=== PATIENT | male | born 1965 | race African-American/Black ===

== ENCOUNTER → 2024-03-09 | Outpatient (CLI) | payer OTHER ==
--- NOTE | 2024-03-09 07:48 | MR ---
EXAMINATION TYPE: MR Prostate wo/w con DATE OF EXAM: 03/09/2024 7:37 AM COMPARISON: None. CLINICAL INDICATION: Male, 59 years old with history of R97.20 ELEVATED PROSTATE SPECIFIC ANTIGEN [P SA]; Elevated PSA. TECHNIQUE: Multi-planar, multi-sequence imaging of the pelvis is performed prior to and following the uncomplicated administration of bolus intravenous gadolinium. IV Contrast: 12 mL Gadobutrol Interpretive Criteria: PI-RADS v2.1 SERUM PSA: 12-24 = 12.20 -07-14 = 10.7 SURGICAL PATHOLOGY: No data available. FINDINGS: Prostatic dimensions: 5.4 x 6.5 x 4.6 cm. Ellipsoid Volume:84.54 (PSA density=0.14 ng/mL/mL) CENTRAL GLAND (Central and Transition Zones/CZ+TZ): Anterior midline high DWI and low ADC signal lesion involving the mid gland anteriorly along the caps ule measuring up to 15 mm and does cross midline. (PI-RADS 5) Additional area on the left towards the apex measuring 12 mm also present which is high DWI and low A DC signal and low T2 signal (PI-RADS 4) Median lobe hypertrophy with protrusion into the base of the bladder. PERIPHERAL ZONE (PZ): Bilateral linear, indistinct wedgelike areas of low ADC, and low T2 signal, No evidence of masslike a bnormality, or localized perfusional hypervascularity, to further suggest a focus of clinically signi ficant prostate cancer. (PI-RADS 2) SEMINAL VESICLES (SV): Symmetric and unremarkable. PERIPROSTATIC TISSUES: Unremarkable. LYMPH NODES: No enlarged pelvic lymph node. REMAINING PELVIS: Bladder wall is within normal limits given distention. No abnormal free or organized intrapelvic fluid collection. No pathologic bowel dilation or mural thickening. No hernia visualized right inguinal hernia repair mesh present. There remains OSSEOUS STRUCTURES: No suspicious osseous abnormality. IMPRESSION: 1. PI-RADS 5 lesion involving the central mid gland, anteriorly, crossing midline measuring up to 15 mm. 2. BI-RADS 4 lesion left central gland towards the apex measuring up to 12 mm. 3. Substantial BPH, estimated gland volume 84.54 mL. 4. No suspicious osseous lesion. No lymphadenopathy. No evidence of prostate adenocarcinoma involving the periprostatic tissues. [facility], , 03/09/2024 7:46 AM
== END | disposition home or self-care (01) ==
LOC: RADMRIMAIN 06:20
PROVIDERS: ATTEND Urology
DX: R97.20 Elevated prostate specific antigen [PSA] (principal); N40.0 Benign prostatic hyperplasia without lower urinary tract symptoms
CPT/HCPCS: 72197; A9585

== ENCOUNTER 2024-04-19 15:27 | Emergency (ER) | payer OTHER ==
[2024-04-19 16:03] LABS: Basophils % (A) 0 %; Eosinophils # (A) 0.1 k/uL (0-0.7); Eosinophils % (A) 2 %; HCT 43.4 % (39.0-53.0); HGB 13.6 gm/dL (13.0-17.5); Lymphocytes # (A) 1.4 k/uL (1.0-4.8); Lymphocytes % (A) 25 %; MCH 29.5 pg (25.0-35.0); MCHC 31.3 g/dL (31.0-37.0); MCV 94.3 fL (80.0-100.0); Mean Platelet Volume 10.6; Monocytes # (A) 0.3 k/uL (0-1.0); Monocytes % (A) 6 %; Neutrophils # (A) 3.7 k/uL (1.3-7.7); Neutrophils % (A) 66 %; Platelet Count 155 k/uL (150-450); RDW 13.7 % (11.5-15.5); WBC 5.6 k/uL (3.8-10.6)
[2024-04-19 16:12] LABS: Partial Thromboplastin Time 24.3 sec (22.0-30.0); Prothrombin Time 11.1 sec (10.0-12.5)
[2024-04-19 16:22] LABS: ALT 30 U/L (4-49); AST 29 U/L (17-59); African American GFR (CKD) 66 (>60 ml/min/1.73 sqM); Albumin 4.4 g/dL (3.5-5.0); Alkaline Phosphatase 63 U/L (38-126); Anion Gap 9 mmol/L; Blood Urea Nitrogen 21 mg/dL (9-20); Calcium 9.7 mg/dL (8.4-10.2); Carbon Dioxide 25 mmol/L (22-30); Chloride 105 mmol/L (98-107); Glucose 84 mg/dL (74-99); Non-African American GFR(CKD) 57 (>60 ml/min/1.73 sqM); Potassium 4.1 mmol/L (3.5-5.1); Sodium 139 mmol/L (137-145); Total Protein 7.4 g/dL (6.3-8.2)
--- NOTE | 2024-04-19 16:22 | ED ---
General Adult HPI - General Chief complaint: Recheck/Abnormal Lab/Rx Stated complaint: high blood pressure Time Seen by Provider: 04/19/24 15:52 Source: patient Mode of arrival: ambulatory Limitations: no limitations - History of Present Illness Initial comments: Patient is a pleasant 59-year-old gentleman past medical Struve hypertension presenting today for high blood pressure. Patient was at an outpatient center about to have a prostate biopsy done when he was noted to have blood pressure of 187/110. He was directed to the emergency room for further evaluation. Patient was seen by his PCP yesterday and was noted to have high blood pressure at that time as well. Was told by his primary care doctor that it could be potentially secondary to not taking his medications as prescribed. Patient states he takes 20 mg of lisinopril that he supposed to take every morning but sometimes takes it at night. He takes another blood pressure medication that he cannot remove the name of. Denies missed dosages and he is not due for any of his medications right now. Patient endorses is a very mild headache at the back of his head but denies any changes in vision, slurred speech, focal numbness or weakness, chest pain, difficulty in breathing or lower extremity swelling. No fevers or chills or recent illness. - Related Data Home Medications Medication Instructions Recorded Confirmed Citalopram Hydrobromide [CeleXA] 20 mg PO DAILY 04/16/24 04/16/24 Omeprazole 20 mg PO DAILY 04/16/24 04/16/24 lisinopriL [Zestril] 20 mg PO DAILY 04/16/24 04/16/24 Allergies Allergy/AdvReac Type Severity Reaction Status Date / Time No Known Allergies Allergy Verified 04/19/24 15:45 Review of Systems ROS Statement: Those systems with pertinent positive or pertinent negative responses have been documented in the HPI. ROS Other: All systems not noted in ROS Statement are negative. Past Medical History Past Medical History: GERD/Reflux, Hypertension History of Any Multi-Drug Resistant Organisms: None Reported Past Surgical History: Hernia Repair Past Anesthesia/Blood Transfusion Reactions: No Reported Reaction Past Psychological History: Depression Smoking Status: Never smoker Past Alcohol Use History: Occasional Past Drug Use History: Marijuana - Past Family History Mother Family Medical History: Cancer Additional Family Medical History / Comment(s): Lung General Exam - General Exam Comments Initial Comments: PE: CONSTITUTIONAL: [no apparent distress, well appearing] SKIN: [warm, dry, no jaundice, hives or petechiae] EYES:[ pupils are equally round, extraocular movements intact without nystagmus, clear conjunctiva, non-icteric sclera] HENT: [normocephalic, atraumatic, moist mucus membranes, oropharynx clear without exudates] NECK: , [Full range of motion, normal appearance] PULMONARY: [clear to auscultation without wheezes, rhonchi, or rales, normal excursion, no accessory muscle use and no stridor] CARDIOVASCULAR:[ regular rate, rhythm, normal S1 and S2. No appreciated murmurs, rubs or gallops. Strong radial pulses with intact distal perfusion. No lower extremity edema] GASTROINTESTINAL: [soft, active bowel sounds throughout, non-tender, non- distended, no palpable masses, no rebound or guarding. No hepatosplenomegaly] GENITOURINARY: MUSCULOSKELETAL: [Extremities have no gross deformity, no edema, redness, or swelling. No calf swelling ] NEUROLOGIC: [_a/o x 3, GCS 15, normal mentation and speech. Moves all extremit ies x 4 without motor or sensory deficit, no focal neurologic deficits, no facial droop, speech is clear, extraocular movements intact] PSYCHIATRIC:[ _normal mood and affect, thought process is clear and linear] Limitations: no limitations Course Vital Signs 04/19/24 04/19/24 04/19/24 15:41 17:13 17:19 Temperature 97.6 F Pulse Rate 68 68 Pulse Rate [ 67 Pulse Oximetery ] Respiratory 17 Rate Blood Pressure 183/131 199/127 O2 Sat by Pulse 97 Oximetry 04/19/24 04/19/24 04/19/24 17:49 18:09 18:24 Temperature 97.8 F 98.1 F Pulse Rate 67 62 66 Pulse Rate [ Pulse Oximetery ] Respiratory 18 18 Rate Blood Pressure 186/109 164/98 170/99 O2 Sat by Pulse 97 99 Oximetry - Reevaluation(s) Reevaluation #1: Administration of Catapres and reassessment of blood pressure were delayed due to patient's pending significant mount of time of the waiting room. Blood pressure increased to 199/127 just prior to Catapres. Catapres given at approximately 1715. Will reassess at 1800 04/19/24 17:44 EKG Findings - EKG Comments: EKG Findings:: Sinus rhythm rate 60 bpm AK interval 159 ms QT/QTc 377/3 9079 ms, normal axis, no ST elevations or depressions, no STEMI, no arrhythmia Medical Decision Making - Medical Decision Making Was pt. sent in by a medical professional or institution (, [facility], ABATTOIR SUPERVISOR, urgent care, hospital, or usp...) When possible be specific @ -No Did you speak to anyone other than the patient for history (EMS, parent, family, police, friend...)? What history was obtained from this source @ -No Did you review nursing and triage notes (agree or disagree)? Why? @ -I reviewed nursing and triage notes Were old charts reviewed (outside hosp., previous admission, EMS record, old EKG, old radiological studies, urgent care reports/EKG's, usp records)? Report findings @ -Medical records reviewed Differential Diagnosis (chest pain, altered mental status, abdominal pain women, abdominal pain men, vaginal bleeding, weakness, fever, dyspnea, syncope, heada janes, dizziness, GI bleed, back pain, seizure, CVA, palpatations, mental health, musculoskeletal)? @Differential diagnose broad over top considerations include hypertensive emergency, hypertensive urgency, pheochromocytoma, thyrotoxicosis, asymptomatic hypertension, medication noncompliance, whitecoat hypertension is not all- inclusive this EKG interpreted by me (3pts min.). @ -As above X-rays interpreted by me (1pt min.). @ -I personally reviewed chest x-ray, I see no cardiomegaly, consolidations or pleural effusions, I agree with radiologist interpretation CT interpreted by me (1pt min.). @ -None done U/S interpreted by me (1pt. min.). @ -None done What testing was considered but not performed or refused? (CT, X-rays, U/S, labs)? Why? @Due to headache and hypertension a CT brain was considered however patient describes his headache has very mild, he has no focal neurologic deficits, hea dache was not sudden in onset or thunderclap like What meds were considered but not given or refused? Why? @ -None Did you discuss the management of the patient with other professionals (professionals i.e. Dr., PA, ABATTOIR SUPERVISOR, lab, RT, psych nurse, social media assistant, generator assembler, teacher, aoc operations intelligence officer, casework manager)? Give summary @ -No Was smoking cessation discussed for >3mins.? @ -No Was critical care preformed (if so, how long)? no Were there social determinants of health that impacted care today? How? (Deyvi elessness, low income, unemployed, alcoholism, drug addiction, transportation, low edu. Level, literacy, decrease access to med. care, senior living, rehab)? @ -No Was there de-escalation of care discussed even if they declined (Discuss DNR or withdrawal of care, Hospice)? @ -No What co-morbidities impacted this encounter? (DM, HTN, Smoking, COPD, CAD, Cancer, CVA, ARF, Chemo, Hep., AIDS, mental health diagnosis, sleep apnea, morbid obesity)? @ HTN Was patient admitted / discharged? Hospital course, mention meds given and route, prescriptions, significant lab abnormalities, going to OR and other perti nent info. @ -Discharged- Patient is a pleasant 59-year-old gentleman past medical history of hypertension presenting with his fiance from an outpatient procedure site due to high blood pressure. Blood pressure on arrival 183/113. Patient endorses a mild headache otherwise is asymptomatic. I did obtain patient's permission to discuss his history and performed brief physical exam in the waiting room. He was agreeable to this. Patient has no red flag symptoms suggestive end organ damage. Reassuring exam. As there is a bed shortage throughout the emergency department due to multiple boarding patients I am unable to treat patient with IV antihypertensives at this time. Patient did suggest Catapres as this has helped him in the past. While patient is pending further evaluation I will order 0.1 mg tablet Catapres, if he is placed in room we will transition to IV medications. As patient is overall asymptomatic with only mild headache I do anticipate discharge. Creatinine 1.36. GFR 66. No measurements from prior to today available for comparison, though labs drawn earlier this afternoon show GFR 70 and Cr 1.29. Urine did show trace protein. Otherwise labs are remarkable. Blood pressure did improve after administration of medications, 164/98. Patient requesting discharge home and is currently asymptomatic. His headache has resolved. I discussed with him trace protein noted in urine and the importance of following up with his doctor for recheck of kidney function, as this could be 2/2 to his HTN. He will call his doctor tomorrow morning regarding further direction on blood pressure medications. I did tell him if he checks his blood pressure tomorrow and it is 180/110 he should take a second dose of his lisinopril. We discussed signs and symptoms warranting return to emergency department and patient was comfortable discharge at this time. In my medical judgment there is currently no evidence of an immediate life- threatening or surgical condition. Discharge is therefore indicated at this time. Discharge treatment instructions, follow up instructions, and appropriate emergency department return precautions were discussed with the patient and/or medical decision maker. Patient and/or medical decision maker expressed understanding of and agreed with the treatment plan, follow up instructions, and emergency department return precaution. All patient's and/or medical decision maker's questions were answered. The patient was advised that a small risk still exists that a serious condition could develop and was therefore instructed to return to the ED for any changes in symptoms, persistent symptoms, inability to obtain proper follow-up or for any further concerns. Patient received verbal and written instructions for this condition. Undiagnosed new problem with uncertain prognosis? @ -No Drug Therapy requiring intensive monitoring for toxicity (Heparin, Nitro, Insulin, Cardizem)? @ -No Were any procedures done? @ -No Diagnosis/symptom? @ -Uncontrolled hypertension Acute, or Chronic, or Acute on Chronic? Acute on chronic Uncomplicated (without systemic symptoms) or Complicated (systemic symptoms)? @Uncomplicated Side effects of treatment? @ -No Exacerbation, Progression, or Severe Exacerbation? @ -No Poses a threat to life or bodily function? How? (Chest pain, [place], [place], pneumonia, PE, COPD, DKA, ARF, appy, cholecystitis, CVA, Diverticulitis, Homicidal, Suicidal, threat to staff... and all critical care pts) @ -No - Lab Data Result diagrams: 04/19/24 15:48 04/19/24 15:48 Lab Results 04/19/24 04/19/24 04/19/24 Range/Units 15:48 15:48 15:48 WBC 5.6 (3.8-10.6) k/uL RBC 4.60 (4.30-5.90) m/uL Hgb 13.6 (13.0-17.5) gm/dL Hct 43.4 (39.0-53.0) % MCV 94.3 (80.0-100.0) fL MCH 29.5 (25.0-35.0) pg MCHC 31.3 (31.0-37.0) g/dL RDW 13.7 (11.5-15.5) % Plt Count 155 (150-450) k/uL MPV 10.6 Neutrophils % 66 % Lymphocytes % 25 % Monocytes % 6 % Eosinophils % 2 % Basophils % 0 % Neutrophils # 3.7 (1.3-7.7) k/uL Lymphocytes # 1.4 (1.0-4.8) k/uL Monocytes # 0.3 (0-1.0) k/uL Eosinophils # 0.1 (0-0.7) k/uL Basophils # 0.0 (0-0.2) k/uL PT 11.1 (10.0-12.5) sec INR 1.0 (<1.2) APTT 24.3 (22.0-30.0) sec Sodium 139 (137-145) mmol/L Potassium 4.1 (3.5-5.1) mmol/L Chloride 105 (98-107) mmol/L Carbon Dioxide 25 (22-30) mmol/L Anion Gap 9 mmol/L BUN 21 H (9-20) mg/dL Creatinine 1.36 H (0.66-1.25) mg/dL Est GFR (CKD-EPI)AfAm 66 (>60 ml/min/1.73 sqM) Est GFR (CKD-EPI)NonAf 57 (>60 ml/min/1.73 sqM) Glucose 84 (74-99) mg/dL Calcium 9.7 (8.4-10.2) mg/dL Total Bilirubin 1.0 (0.2-1.3) mg/dL AST 29 (17-59) U/L ALT 30 (4-49) U/L Alkaline Phosphatase 63 (38-126) U/L Troponin I (0.000-0.034) ng/mL NT-Pro-B Natriuret Pep pg/mL Total Protein 7.4 (6.3-8.2) g/dL Albumin 4.4 (3.5-5.0) g/dL TSH (0.465-4.680) mIU/L Urine Color Urine Appearance (Clear) Urine pH (5.0-8.0) Ur Specific [place] (1.001-1.035) Urine Protein (Negative) Urine Glucose (UA) (Negative) Urine Ketones (Negative) Urine Blood (Negative) Urine Nitrite (Negative) Urine Bilirubin (Negative) Urine Urobilinogen (<2.0) mg/dL Ur Leukocyte Esterase (Negative) 04/19/24 04/19/24 04/19/24 Range/Units 15:48 15:48 17:27 WBC (3.8-10.6) k/uL RBC (4.30-5.90) m/uL Hgb (13.0-17.5) gm/dL Hct (39.0-53.0) % MCV (80.0-100.0) fL MCH (25.0-35.0) pg MCHC (31.0-37.0) g/dL RDW (11.5-15.5) % Plt Count (150-450) k/uL MPV Neutrophils % % Lymphocytes % % Monocytes % % Eosinophils % % Basophils % % Neutrophils # (1.3-7.7) k/uL Lymphocytes # (1.0-4.8) k/uL Monocytes # (0-1.0) k/uL Eosinophils # (0-0.7) k/uL Basophils # (0-0.2) k/uL PT (10.0-12.5) sec INR (<1.2) APTT (22.0-30.0) sec Sodium (137-145) mmol/L Potassium (3.5-5.1) mmol/L Chloride (98-107) mmol/L Carbon Dioxide (22-30) mmol/L Anion Gap mmol/L BUN (9-20) mg/dL Creatinine (0.66-1.25) mg/dL Est GFR (CKD-EPI)AfAm (>60 ml/min/1.73 sqM) Est GFR (CKD-EPI)NonAf (>60 ml/min/1.73 sqM) Glucose (74-99) mg/dL Calcium (8.4-10.2) mg/dL Total Bilirubin (0.2-1.3) mg/dL AST (17-59) U/L ALT (4-49) U/L Alkaline Phosphatase (38-126) U/L Troponin I <0.012 (0.000-0.034) ng/mL NT-Pro-B Natriuret Pep 119 pg/mL Total Protein (6.3-8.2) g/dL Albumin (3.5-5.0) g/dL TSH 0.622 (0.465-4.680) mIU/L Urine Color Yellow Urine Appearance Clear (Clear) Urine pH 6.0 (5.0-8.0) Ur Specific [place] 1.023 (1.001-1.035) Urine Protein Trace H (Negative) Urine Glucose (UA) Negative (Negative) Urine Ketones Negative (Negative) Urine Blood Negative (Negative) Urine Nitrite Negative (Negative) Urine Bilirubin Negative (Negative) Urine Urobilinogen <2.0 (<2.0) mg/dL Ur Leukocyte Esterase Negative (Negative) Disposition Clinical Impression: Uncontrolled hypertension, Protein in urine Disposition: HOME SELF-CARE Condition: Good Instructions (If sedation given, give patient instructions): Hypertension (ED) Additional Instructions: Every disease is a spectrum and a small chance still exists that a serious condition could develop, for this reason, please monitor yourself closely for new, changing or worsening symptoms, strokelike symptoms such as changes in vision, numbness, weakness, slurred speech or confusion, severe headache like you have never had before, chest pain, shortness breath, swelling in your legs, no urine output for greater than 9 hours, right upper quadrant abdominal pain, fever, inability to tolerate/keep down fluids or your medications, inability to follow up with outpatient providers as instructed and should you experience th isadora symptoms or should you have any further concerns for your wellbeing please return to the ED or call 911 immediately. Should you measure blood pressure at home and the top numbers of 180 and/or the bottom numbers above 110 but you have none of the symptoms listed above please take a second dose of your lisinopril until you are able to follow-up with your primary care provider for long-term plan regarding blood pressure management. PLEASE call your primary care physician as soon as possible to arrange / discuss plan for followup appointment. Appointment in the next 1-3 days is strongly e ncouraged if possible. PLEASE let us know here before you leave if there is anything further we can do to be of any assistance. Take care and feel Better! Is patient prescribed a controlled substance at d/c from ED?: No [facility] - 1-2 days
--- NOTE | 2024-04-19 16:23 | XR ---
EXAMINATION TYPE: XR chest 2V DATE OF EXAM: 04/19/2024 4:07 PM COMPARISON: None. CLINICAL INDICATION: Male, 59 years old with history of elevated BP, TECHNIQUE: XR chest 2V view(s) obtained. FINDINGS: The heart size is normal. The pulmonary vasculature is normal. The lungs are clear. There is elevation of the right diaphragm. IMPRESSION: 1. No acute pulmonary process. [facility], , 04/19/2024 4:21 PM
[2024-04-19 17:01] LABS: NT-Pro-B-Type Natriuretic Pept 119 pg/mL
[2024-04-19] MEDS: ACETAMINOPHEN TAB 500 MG TAB PO STA (17:16)
[2024-04-19] MEDS: cloNIDine HCL 0.1 MG TAB PO STA (17:16)
[2024-04-19] MEDS: IBUPROFEN 600 MG TAB PO STA (17:18)
[2024-04-19 17:37] LABS: Appearance,Urine Clear (Clear); Bilirubin,Urine Negative (Negative); Blood,Urine Negative (Negative); Color,Urine Yellow; Glucose,Urine (UA) Negative (Negative); Ketones,Urine Negative (Negative); Leukocyte Esterase,Urine Negative (Negative); Nitrite,Urine Negative (Negative); Protein,Urine Trace (Negative); Specific Gravity,Urine 1.023 (1.001-1.035); Urobilinogen,Urine <2.0 mg/dL (<2.0)
[2024-04-19] MEDS ORDERED: LABETALOL SYRINGE 5 MG/ML (4 ML SYR) IVP STA (17:43)
[2024-04-19] MEDS: LABETALOL 5 MG/ML VIAL MDV IVP STA (17:57)
[2024-04-19 18:12] VITALS: RESP 18
[2024-04-19 18:26] VITALS: BP 170/99; PULSE 66; TEMP 98.1
== END 2024-04-19 18:26 | disposition home or self-care (01) ==
LOC: EC 15:27
DX: I10 Essential (primary) hypertension (principal); R80.9 Proteinuria, unspecified
CPT/HCPCS: 36415; 93005; 83880; 80053; 84443; 84484; 85025; 85610; 85730; 81003; 71046; 99284; 96374; J1920

== ENCOUNTER → 2024-04-19 | Day surgery (SDC) | payer OTHER ==
--- NOTE | 2024-03-29 12:37 | P.HPIHPCON ---
History of Present Illness H&P Date: 03/29/24 Chief Complaint: Elevated PSA This is a 59-year-old male with history of elevated PSA at 12.2. Underwent a prostate MRI that showed evidence of a PI-RADS 5 lesion along the central gland, an additional PI-RADS 4 lesion along the left central apex of the gland. Discussed with him given this finding I do recommend proceeding with an MRI fusion biopsy of the prostate. He is aware of the risk which includes but not limited to bleeding, infection Consent for Procedure: I have explained the operation/procedure to the patient, including the risks, benefits, side effects, alternative therapies (including not receiving the proposed treatment or service), the likelihood of the patient achieving his/her goals, and potential recuperation problems for the procedure/sedation/analgesia, as well as any blood products, if indicated. I also explained to the patient the risks, benefits and side effects of the alternatives, as well as the risks related to not receiving the proposed procedure, care, treatment, or services. Surgical - Exam - General no distress, no pain - Eyes normal ocular movement, no pale - ENT normal nares, normal mucosa - Respiratory normal expansion, normal respiratory effort - Abdomen Abdomen: soft, non tender Assessment and Plan Assessment: OR for MRI fusion biopsy of the prostate
[2024-04-16 15:35] VITALS: BMI 34.8
[~2024-04-19] MED LIST: GENTAMICIN 40 MG/ML 2 ML VIAL IM PRN; LIDOCAINE 1% (10MG/ML) FOR IV START INTRADERMA PRN
[2024-04-19 14:22] VITALS: RESP 16; TEMP 98.2
[2024-04-19] MEDS: IV FLUID CONTINUATION 1,000 ML IV ONE (14:24)
[2024-04-19 14:25] LABS: Appearance,Urine Clear (Clear); Bilirubin,Urine Negative (Negative); Blood,Urine Negative (Negative); Color,Urine Yellow; Glucose,Urine (UA) Negative (Negative); Ketones,Urine Negative (Negative); Leukocyte Esterase,Urine Negative (Negative); Nitrite,Urine Negative (Negative); Protein,Urine Trace (Negative); Specific Gravity,Urine 1.023 (1.001-1.035); Urobilinogen,Urine <2.0 mg/dL (<2.0)
[2024-04-19] MEDS: ONDANSETRON 4 MG/2 ML VIAL IVP ONE (14:34)
[2024-04-19] MEDS: DEXAMETHASONE SOD PHOSPHATE 4 MG/ML 1 ML VIAL IV ONE (14:34)
[2024-04-19] MEDS: LACTATED RINGERS 1,000 ML IV SCH (14:34)
[2024-04-19 14:46] LABS: Basophils % (A) 1 %; Eosinophils # (A) 0.1 k/uL (0-0.7); Eosinophils % (A) 2 %; HCT 43.2 % (39.0-53.0); Lymphocytes # (A) 1.4 k/uL (1.0-4.8); Lymphocytes % (A) 24 %; MCH 30.8 pg (25.0-35.0); MCHC 32.5 g/dL (31.0-37.0); MCV 94.8 fL (80.0-100.0); Mean Platelet Volume 10.5; Monocytes # (A) 0.4 k/uL (0-1.0); Monocytes % (A) 6 %; Neutrophils # (A) 3.7 k/uL (1.3-7.7); Neutrophils % (A) 66 %; Platelet Count 160 k/uL (150-450); RBC 4.55 m/uL (4.30-5.90); RDW 13.8 % (11.5-15.5); WBC 5.7 k/uL (3.8-10.6)
[2024-04-19 14:58] VITALS: BP 187/110; PULSE 65
[2024-04-19 15:01] LABS: African American GFR (CKD) 70 (>60 ml/min/1.73 sqM); Anion Gap 7 mmol/L; Blood Urea Nitrogen 21 mg/dL (9-20); Calcium 9.8 mg/dL (8.4-10.2); Carbon Dioxide 27 mmol/L (22-30); Chloride 105 mmol/L (98-107); Glucose 82 mg/dL (74-99); Non-African American GFR(CKD) 61 (>60 ml/min/1.73 sqM); Sodium 139 mmol/L (137-145)
[2024-04-19 15:03] LABS: Potassium 4.4 mmol/L (3.5-5.1)
== END ==
LOC: OR 11:35
PROVIDERS: ATTEND Urology
DX: Z53.8 Procedure and treatment not carried out for other reasons (principal); N40.0 Benign prostatic hyperplasia without lower urinary tract symptoms; R97.20 Elevated prostate specific antigen [PSA]; I10 Essential (primary) hypertension; F12.90 Cannabis use, unspecified, uncomplicated; F32.A Depression, unspecified; K21.9 Gastro-esophageal reflux disease without esophagitis; Z79.899 Other long term (current) drug therapy
CPT/HCPCS: 80048; 81003; 85025; 87086

== ENCOUNTER 2024-05-08 09:03 | Day surgery (SDC) | payer OTHER ==
--- NOTE | 2024-05-07 07:44 | P.HPIHPCON ---
History of Present Illness H&P Date: 05/07/24 Chief Complaint: Elevated PSA This is a 59-year-old male with history of elevated PSA at 12.2. Underwent a prostate MRI that showed evidence of a PI-RADS 5 lesion along the central gland, an additional PI-RADS 4 lesion along the left central apex of the gland. Discussed with him given this finding I do recommend proceeding with an MRI fusion biopsy of the prostate. He is aware of the risk which includes but not limited to bleeding, infection Consent for Procedure: I have explained the operation/procedure to the patient, including the risks, benefits, side effects, alternative therapies (including not receiving the proposed treatment or service), the likelihood of the patient achieving his/her goals, and potential recuperation problems for the procedure/sedation/analgesia, as well as any blood products, if indicated. I also explained to the patient the risks, benefits and side effects of the alternatives, as well as the risks related to not receiving the proposed procedure, care, treatment, or services. Past Medical History Past Medical History: GERD/Reflux, Hypertension History of Any Multi-Drug Resistant Organisms: None Reported Past Surgical History: Hernia Repair Past Anesthesia/Blood Transfusion Reactions: No Reported Reaction Past Psychological History: Depression Smoking Status: Never smoker Past Alcohol Use History: Occasional Past Drug Use History: Marijuana - Past Family History Mother Family Medical History: Cancer Additional Family Medical History / Comment(s): Lung Medications and Allergies Home Medications Medication Instructions Recorded Confirmed Type Citalopram Hydrobromide [CeleXA] 20 mg PO DAILY 04/16/24 04/16/24 History Omeprazole 20 mg PO DAILY 04/16/24 04/16/24 History lisinopriL [Zestril] 20 mg PO DAILY 04/16/24 04/16/24 History Allergies Allergy/AdvReac Type Severity Reaction Status Date / Time No Known Allergies Allergy Verified 04/19/24 15:45 Surgical - Exam - General no distress, no pain - Eyes normal ocular movement, no pale - ENT normal nares, normal mucosa - Respiratory normal expansion, normal respiratory effort - Abdomen Abdomen: soft, non tender, no distended - Psychiatric oriented to time, oriented to person, oriented to place Assessment and Plan Assessment: OR for MRI fusion biopsy of the prostate
[~2024-05-08 09:03] MED LIST changes: -GENTAMICIN 40 MG/ML 2 ML VIAL IM PRN; +HYDROmorphone 0.5 MG/0.5 ML SYRINGE IVP PRN; -LIDOCAINE 1% (10MG/ML) FOR IV START INTRADERMA PRN; +MIDAZOLAM 2 MG/2 ML VIAL IV PRN
[2024-05-08 10:53] VITALS: TEMP 97.4
[2024-05-08] MEDS: LACTATED RINGERS 1,000 ML IV SCH (11:02)
[2024-05-08] MEDS: hydrALAZINE HCL 20 MG/ML 1 ML VIAL IVP STA (11:06)
[2024-05-08] MEDS: IV FLUID CONTINUATION 1,000 ML IV ONE (11:09)
[2024-05-08] MEDS: GENTAMICIN 40 MG/ML 2 ML VIAL IM PRN (11:19)
[2024-05-08] MEDS ORDERED: LIDOCAINE 1% INJ 10MG/ML (20 ML MDV) ONE (12:41)
[2024-05-08] MEDS ORDERED: MIDAZOLAM 2 MG/2 ML VIAL ONE (12:41)
[2024-05-08] MEDS ORDERED: PROPOFOL 10 MG/ML 20 ML VIAL IV ONE (12:41)
--- NOTE | 2024-05-08 13:22 | P.OP ---
Date of Procedure: 05/08/24 Preoperative Diagnosis: Elevated PSA Postoperative Diagnosis: Same Procedure(s) Performed: MRI fusion biopsy of the prostate Implants: None Anesthesia: MAC Estimated Blood Loss (ml): 1 Pathology: other (Prostate biopsies) Condition: stable Disposition: PACU Indications for Procedure: This is a 59-year-old male with history of elevated PSA at 12.2. Underwent a prostate MRI that showed evidence of a PI-RADS 5 lesion along the central gland, an additional PI-RADS 4 lesion along the left central apex of the gland. Discussed with him given this finding I do recommend proceeding with an MRI fusion biopsy of the prostate. He is aware of the risk which includes but not limited to bleeding, infection Description of Procedure: The patient was taken to the operating room and placed in the left lateral decubitus position. The [employer] App transrectal ultrasound probe was placed intrarectally. It was then placed within the stand of the [employer] MRI/TRUS Fusion for Prostate Biopsy system. The prostate was imaged in both the axial and sagittal planes,. Using the Biopsy gun, 3 biopsies were obtained from the target lesion, there were were two lesions, . The remaining 12 biopsies of the peripheral zone were obtained utilizing a standard template. Once the procedure was completed, the ultrasound probe was removed. The patient tolerated the procedure well was taken to the recovery room stable condition
[2024-05-08 13:33] VITALS: BP 146/80; PULSE 66; RESP 18
== END 2024-05-08 13:50 | disposition home or self-care (01) ==
LOC: OR 09:03
PROVIDERS: ATTEND Urology
DX: C61 Malignant neoplasm of prostate (principal); R97.20 Elevated prostate specific antigen [PSA]; K21.9 Gastro-esophageal reflux disease without esophagitis; I12.9 Hypertensive chronic kidney disease with stage 1 through stage 4 chronic kidney disease, or unspecified chronic kidney disease; N18.9 Chronic kidney disease, unspecified; F32.A Depression, unspecified; F12.90 Cannabis use, unspecified, uncomplicated; Z79.899 Other long term (current) drug therapy; Z98.890 Other specified postprocedural states
CPT/HCPCS: 88305; 55700; J2250; J0360; J1580; J2003; J2704

== ENCOUNTER → 2024-05-08 | Outpatient (CLI) | payer OTHER ==
[2024-05-08 15:39] LABS: BUN/Creat Ratio 12.86 Ratio (12.00-20.00); Calcium 9.5 mg/dL (8.7-10.3); Carbon Dioxide 26.4 mmol/L (21.6-31.8); Chloride 106 mmol/L (96-109); Glucose 95 mg/dL (70-110); Potassium 4.2 mmol/L (3.5-5.5); Sodium 142 mmol/L (135-145)
[2024-05-08 15:41] LABS: Appearance,Urine Clear (Clear); Bilirubin,Urine Negative (Negative); Blood,Urine Negative (Negative); Color,Urine Yellow (Yellow); Ketones,Urine Negative (Negative); Nitrite,Urine Negative (Negative); Specific Gravity,Urine 1.018 (1.001-1.030)
[2024-05-08 15:45] LABS: Basophils # (A) 0.02 X 10*3/uL (0.00-0.10); Basophils % (A) 0.4 %; Eosinophils # (A) 0.04 X 10*3/uL (0.04-0.35); Eosinophils % (A) 0.8 %; HCT 46.1 % (39.6-50.0); HGB 14.5 g/dL (13.0-17.0); Immature Grans, Automated 0 %; Lymphocytes # (A) 1.23 X 10*3/uL (0.90-5.00); Lymphocytes % (A) 23.3 %; MCH 30.3 pg (27.0-32.0); MCHC 31.5 g/dL (32.0-37.0); MCV 96.2 FL (80.0-97.0); Mean Platelet Volume 13.4 FL (9.5-12.2); Monocytes # (A) 0.51 X 10*3/uL (0.20-1.00); Monocytes % (A) 9.7 %; NRBC Per 100 WBC 0 X 10*3/uL (0.00-0.01); Neutrophils # (A) 3.48 X 10*3/uL (1.80-7.70); Neutrophils % (A) 65.8 %; Platelet Count 192 X 10*3/uL (140-440); RBC 4.79 X 10*6/uL (4.40-5.60); RDW 13.3 % (11.5-14.5); WBC 5.28 X 10*3/uL (4.50-10.00)
== END | disposition home or self-care (01) ==
LOC: LABPAT 08:32
PROVIDERS: ATTEND Urology
DX: Z01.812 Encounter for preprocedural laboratory examination (principal); R97.20 Elevated prostate specific antigen [PSA]
CPT/HCPCS: 80048; 81003; 85025; 87086

== ENCOUNTER → 2024-07-02 | Outpatient (CLI) | payer OTHER ==
[2024-07-02 18:50] LABS: Basophils # (A) 0.02 X 10*3/uL (0.00-0.10); Basophils % (A) 0.3 %; Eosinophils # (A) 0.05 X 10*3/uL (0.04-0.35); Eosinophils % (A) 0.8 %; HCT 46.1 % (39.6-50.0); HGB 15.1 g/dL (13.0-17.0); Lymphocytes # (A) 1.41 X 10*3/uL (0.90-5.00); Lymphocytes % (A) 22.7 %; MCH 31.5 pg (27.0-32.0); MCHC 32.8 g/dL (32.0-37.0); Mean Platelet Volume 13.5 FL (9.5-12.2); Monocytes # (A) 0.54 X 10*3/uL (0.20-1.00); Monocytes % (A) 8.7 %; NRBC Per 100 WBC 0 X 10*3/uL (0.00-0.01); Neutrophils # (A) 4.18 X 10*3/uL (1.80-7.70); Neutrophils % (A) 67.3 %; Platelet Count 185 X 10*3/uL (140-440); RDW 12.9 % (11.5-14.5); WBC 6.21 X 10*3/uL (4.50-10.00)
[2024-07-02 20:09] LABS: Appearance,Urine Cloudy (Clear); Bacteria,Urine None Seen (None Seen); Bilirubin,Urine Negative (Negative); Blood,Urine Negative (Negative); Calcium Oxalate Crystals,Urine Present (None Seen); Color,Urine Dark Yellow (Yellow); Ketones,Urine Trace (Negative); Nitrite,Urine Negative (Negative); Specific Gravity,Urine 1.033 (1.001-1.030)
[2024-07-02 20:41] LABS: Blood Urea Nitrogen 27.5 mg/dL (9.0-27.0); Calcium 9.8 mg/dL (8.7-10.3); Chloride 100 mmol/L (96-109); Glucose 75 mg/dL (70-110); Potassium 4.3 mmol/L (3.5-5.5); Sodium 137 mmol/L (135-145)
== END | disposition home or self-care (01) ==
LOC: LABPAT 15:16
PROVIDERS: ATTEND Urology
DX: Z01.812 Encounter for preprocedural laboratory examination (principal); C61 Malignant neoplasm of prostate
CPT/HCPCS: 80048; 81001; 85025; 86850; 86900; 86901; 87086

== ENCOUNTER 2024-07-05 10:07 | Day surgery (SDC) | payer OTHER ==
[2024-06-28 14:59] VITALS: BMI 34.8
--- NOTE | 2024-07-03 12:28 | P.HPIHPCON ---
History of Present Illness H&P Date: 07/03/24 Chief Complaint: Prostate cancer This is a 59-year-old male with history of [place] 7(4+3) prostate cancer. Option of radiation therapy versus robotic radical prostatectomy was discussed in details. Risk and benefit of each approach were discussed. He agreed to proceed with a robotic radical prostatectomy. He is aware of the risk which include but not limited to bleeding, infection, urinary incontinence, erectile dysfunction. Discussed also risk of injury to nearby organs. Risk of cancer recurrence and the need for additional treatments were discussed. Discussed also the need for postoperative surveillance. He understood all the risk and agreed to proceed Consent for Procedure: I have explained the operation/procedure to the patient, including the risks, benefits, side effects, alternative therapies (including not receiving the pr oposed treatment or service), the likelihood of the patient achieving his/her goals, and potential recuperation problems for the procedure/sedation/analgesia, as well as any blood products, if indicated. I also explained to the patient the risks, benefits and side effects of the alternatives, as well as the risks related to not receiving the proposed procedure, care, treatment, or services. Past Medical History Past Medical History: Cancer, GERD/Reflux, Hyperlipidemia, Hypertension Additional Past Medical History / Comment(s): Current prostate cancer. No longer on medication for high cholesterol. History of Any Multi-Drug Resistant Organisms: None Reported Past Surgical History: Hernia Repair Additional Past Surgical History / Comment(s): Prostate biopsy. Past Anesthesia/Blood Transfusion Reactions: No Reported Reaction Smoking Status: Never smoker - Past Family History Mother Family Medical History: Cancer Additional Family Medical History / Comment(s): Lung cancer. Medications and Allergies Home Medications Medication Instructions Recorded Confirmed Type Citalopram Hydrobromide [CeleXA] 20 mg PO DAILY 04/16/24 06/28/24 History Omeprazole 20 mg PO DAILY 04/16/24 06/28/24 History lisinopriL [Zestril] 40 mg PO DAILY 04/16/24 06/28/24 History cloNIDine HCL 0.1 mg PO DAILY 05/08/24 06/28/24 History Multivitamins, Thera [Multivitamin 1 tab PO DAILY 06/28/24 06/28/24 History (formulary)] Vitamin E (Unknown Dose) 1 tab PO DAILY 05/08/25 05/08/25 History Allergies Allergy/AdvReac Type Severity Reaction Status Date / Time No Known Allergies Allergy Verified 06/28/24 14:31 Surgical - Exam - General no distress, no pain - Eyes normal ocular movement, no pale - ENT normal nares, normal mucosa - Respiratory normal expansion, normal respiratory effort - Abdomen Abdomen: soft, non tender Assessment and Plan Assessment: OR for robotic radical prostatectomy with bilateral pelvic lymph node dissection
[2024-07-05] MEDS: IV FLUID CONTINUATION 1,000 ML IV ONE ×4 (10:33)
[2024-07-05] MEDS: DEXAMETHASONE SOD PHOSPHATE 4 MG/ML 1 ML VIAL IV ONE (11:01)
[2024-07-05] MEDS: ONDANSETRON 4 MG/2 ML VIAL IVP ONE (11:01)
[2024-07-05] MEDS: LACTATED RINGERS 1,000 ML IV SCH (11:01)
[2024-07-05] MEDS: MIDAZOLAM 2 MG/2 ML VIAL IV ONE (11:43)
[2024-07-05] MEDS: fentaNYL (PF) 50 MCG/ML 2 ML AMP IVP STA (11:43)
[2024-07-05] MEDS ORDERED: ONDANSETRON 4 MG/2 ML VIAL IVP PRN (11:47)
[2024-07-05] MEDS: HEPARIN SODIUM,PORCINE 5,000 UNIT/ML 1 ML VIAL SQ PRN (11:57)
[2024-07-05] MEDS ORDERED: ROPIVACAINE 5 MG/ML 30 ML VIAL ONE (12:17)
[2024-07-05] MEDS ORDERED: DEXAMETHASONE SOD PHOSPHATE 4 MG/ML 1 ML VIAL ONE (12:17)
[2024-07-05] MEDS ORDERED: HYDROmorphone (PF) 1 MG/ML ONE (12:17)
[2024-07-05] MEDS ORDERED: LIDOCAINE 1% INJ 10MG/ML (20 ML MDV) ONE (12:17)
[2024-07-05] MEDS ORDERED: GLYCOPYRROLATE 0.2 MG/ML 2 ML VIAL ONE (12:17)
[2024-07-05] MEDS ORDERED: SODIUM CHLORIDE 0.9% (PF) 10 ML VIAL ONE (12:17)
[2024-07-05] MEDS ORDERED: MIDAZOLAM 2 MG/2 ML VIAL ONE (12:17)
[2024-07-05] MEDS ORDERED: SUCCINYLCHOLINE CHLORIDE 200 MG/10 ML VIAL IV ONE (12:17)
[2024-07-05] MEDS ORDERED: NEOSTIGMINE 1 MG/ML 10 ML VIAL ONE (12:17)
[2024-07-05] MEDS ORDERED: fentaNYL (PF) 50 MCG/ML 2 ML AMP ONE (12:17)
[2024-07-05] MEDS ORDERED: PHENYLEPHRINE 10 MG/ML VIAL ONE (12:17)
[2024-07-05] MEDS ORDERED: PROPOFOL 10 MG/ML 20 ML VIAL IV ONE (12:17)
[2024-07-05] MEDS ORDERED: SUGAMMADEX SODIUM 100 MG/ML SYR IV ONE (12:17)
[2024-07-05] MEDS ORDERED: ROCURONIUM 10 MG/ML (5 ML VIAL) IV ONE (12:17)
[2024-07-05] MEDS: ceFAZolin 2 GM in DEXTROSE 5% IN WATER 50 ML IVPB PRN (12:25)
--- NOTE | 2024-07-05 13:17 | P.ANPRN ---
Procedure Note - Anesthesia - Nerve Block Performed Bilateral Erector Spinae Single Time Out Performed: Yes (1142) Date of Procedure: 07/05/24 Procedure Start Time: 11:43 Procedure Stop Time: 11:48 Location of Patient: PreOp Indication: Acute Post-Operative Pain, Requested by Surgeon Specifically requested for management of pain by : Santiago Vega Sedation Type: Sedate with meaningful contact maintained Preparation: Sterile Prep Position: Prone Catheter: None Needle Types: Pajunk Needle Gauge: 21 Ultrasound used to visualize needle placement: Yes Ultrasound used to observe medication spread: Yes Injectate: 0.5% Ropivacaine (see comment for volume) (15cc+10cc nacl pf +decadron 4mg) Blood Aspirated: No Pain Paresthesia on Injection Noted: No Resistance on Injection: Normal Image Stored and Saved: Yes Events: Uneventful and Well Tolerated
[2024-07-05] MEDS: BUPIVACAINE (PF) 0.5% 30 ML VIAL SQ ONE ×4 (13:22→16:53)
[2024-07-05] MEDS: LACTATED RINGERS 1,000 ML IV ONE (15:05)
--- NOTE | 2024-07-05 16:43 | P.OP ---
Date of Procedure: 07/05/24 Preoperative Diagnosis: Prostate cancer Postoperative Diagnosis: Same Procedure(s) Performed: Robotic assisted laparoscopic radical prostatectomy with bilateral pelvic lymph node dissection Implants: None Anesthesia: SHERWINA Surgeon: Santiago Vega Estimated Blood Loss (ml): 100 Pathology: other (Prostate, bilateral seminal vesicles, bilateral pelvic nodes) Condition: stable Disposition: PACU Indications for Procedure: This is a 59-year-old male with history of [place] 7(4+3) prostate cancer. Option of radiation therapy versus robotic radical prostatectomy was discussed in details. Risk and benefit of each approach were discussed. He agreed to pro ceed with a robotic radical prostatectomy. He is aware of the risk which include but not limited to bleeding, infection, urinary incontinence, erectile dysfunction. Discussed also risk of injury to nearby organs. Risk of cancer recurrence and the need for additional treatments were discussed. Discussed also the need for postoperative surveillance. He understood all the risk and agreed to procee Description of Procedure: After preoperative antibiotics were started, the patient was taken to the operating room. Anesthesia was induced and the patient was placed in a supine position, with adequate padding of the pressure points, shoulders, back, legs and arms. He was then prepped and draped in the standard fashion. A critical pause was performed using two patient identifiers. A 16F pedro catheter was placed to gravity drainage. Patient had incision along the midline, thus decision was made to proceed with a gel point. Supraumbilical incision was made, subcutaneous tissue was dissected down using cautery. Dissection was carried down to the fascia. Next the fascia was grasped with 2 [place]'s and incised sharply. Entry was made into the peritoneum using the Metzenbaum scissors. At this time finger sweeping was performed which showed no adhesion along the midline. At this point a gel point was placed A pneumo- peritoneum was created 8 Fr trocar was placed through the gel point. Under direct vision a 8mm robotic ports was placed lateral to each rectus slightly below the camera port. The left iliac fossa 8mm port was placed. The right technical staff assistant right iliac fossa 12mm port and right paramedian 5mm portwere placed. After the patient was placed in the trendelenberg position, the robot was then docked to the 8mm robotic ports and then each robotic arm and tower was checked in relation to the patient's legs and hands to avoid inadvertent compression. The peritoneal cavity was inspected. Patient had adhesions along the midline which was taken down robotically using the hook, and involved the omentum. Of note there was quite evident inflammatory response along the prior hernia repair and the mesh appeared to be more along the midline rather than along the inguinal canal. An inverted U-shaped incision began laterally to the left medial umbilical ligament and extended high across the midline to the right umbilical ligament. The limbs of the "U" extended to the level of the vasa on both sides. We next developed the preperitoneal space and the space of Retzius, there was significant scarring involving the bladder as it was attached to the pubic bone, I was able to release the bladder away from the pubic bone and there was no injury to the bladder. Cautery was used to dissected the bladder away from the prostate. after the an terior bladder neck was incised and the bladder entered the the posterior bladder neck was exposed and the ureteral orifces identified. Patient had a significantly enlarged median lobe and intravesical extension of the bilateral lateral lobes. The posterior bladder neck was then incised and dissected away from the prostate. The vas and the seminal vesicles were now exposed and dissected to their insertions into the prostate and were not spared. The posterior layer of the Denonvillier's fascia was incised to enter prince the plane between prostate and perirectal fat. Each lateral pedicle was controlled with vessel sealer, partial nerve preservation was performed bilaterally. The puboprostatic ligament was incised where it inserted into the apex of the prostate and a plane between urethra and dorsal venous complex developed to expose the anterior urethral surface. The anterior wall of the urethra was transected with the cut setting a few millimeters distal to the apex of the prostate. The dorsal vein was ligated using 3-0 V lock bilateral obturator and external iliac lymph node packets were carefully dissected after careful visualization of the hypogastric artery and obturator nerve. There was careful attention paid to hemostasis with judicious use of cautery. The urethrovesical anastomosis was performed . the posterior denovillers was reapproximated using 3-0 V lock. A 9 and 9 inch 3-0 V-Lock suture was used to anastomose the urethra and bladder, starting at the 6:00 posterior position. Mucosa was secured in every stitch, to ensure a mucosa to mucosa anastomosis. The stitch was regularly cinched and the anastomosis tightened. Care was taken to not violate the ureteral orifices. The Pedro catheter was advanced, the bladder filled, and the anastomosis was tested, as described above. Anastomsis was watertight at 150 mL The periumbilical fascia was closed with 1-0-PDS suture in figure of eight fashion. All ports were closed with a subcuticular 4-0 monocryl and Dermabond. Sponge, instrument, and needle counts were correct at the end of the case x2. All specimens including prostate and lymph nodes were sent to pathology for diagnosis and will be available in a week. The patient tolerated the surgery well and without complication. He awoke without difficulty and was taken to the recovery room in stable condition
[2024-07-05] MEDS: hydrALAZINE HCL 20 MG/ML 1 ML VIAL IVP STA (17:33)
[2024-07-05] MEDS: HYDROmorphone 0.5 MG/0.5 ML SYRINGE IVP PRN (17:36)
[2024-07-05] MEDS: KETOROLAC 15 MG/ML 1 ML VIAL IVP SCH (17:51)
[2024-07-05] MEDS: HEPARIN SODIUM,PORCINE 5,000 UNIT/ML 1 ML VIAL SQ SCH (18:45)
[2024-07-05] MEDS: D5-0.45% NACL WITH KCL 20MEQ/L 1,000 ML IV SCH (18:47)
[2024-07-05] MEDS: HYDROmorphone 1 MG/ML 1 ML SYRINGE IVP PRN (19:14)
[2024-07-05] MEDS: HYDROcodone/APAP 5-325MG 1 EACH TAB PO PRN (22:06)
[2024-07-06] MEDS: cloNIDine HCL 0.1 MG TAB PO SCH (00:11)
[2024-07-06] MEDS: lisinopriL 20 MG TAB PO SCH (00:11)
[2024-07-06] MEDS: cloNIDine HCL 0.1 MG TAB PO STA (00:16)
[2024-07-06] MEDS: lisinopriL 20 MG TAB PO STA (00:42)
[2024-07-06 02:34] VITALS: RESP 18
[2024-07-06] MEDS: PANTOPRAZOLE 40 MG TABLET PO SCH (06:00)
[2024-07-06] MEDS: hydrALAZINE HCL 20 MG/ML 1 ML VIAL IM STA (06:09)
[2024-07-06 07:47] VITALS: BP 152/88; PULSE 80; TEMP 99.2
[2024-07-06] MEDS: CITALOPRAM HYDROBROMIDE 20 MG TAB PO SCH (08:44)
--- NOTE | 2024-07-06 12:28 | P.DS ---
Providers Expected date of discharge: 07/06/24 Attending physician: Santiago Vega MD Primary care physician: [facility] Course: On the day of admission, the patient underwent an uncomplicated RALP. The perioperative course was unremarkable. The patient's blood pressure was elevated the night following surgery, but his antihypertensives were resumed and his blood pressure normalized. On the first postoperative day, he was tolerating diet and had no specific complaints, other than mild incisional discomfort. On examination, the abdomen was soft and nondistended. Incisions were clean, dry, and intact. The Moyer catheter was draining faintly blood- tinged urine. Procedures: Robotic assisted laparoscopic prostatectomy (RALP) with pelvic lymphadenectomy on July 05, 2024. Patient Condition at Discharge: Good Plan - Discharge Summary Discharge Rx Participant: Yes New Discharge Prescriptions: New HYDROcodone/APAP 5-325MG [[place] 5-325] 1 - 2 tab PO Q6HR PRN #6 tab PRN Reason: Pain Ciprofloxacin HCl [Cipro] 250 mg PO Q12HR #6 tablet No Action Citalopram Hydrobromide [CeleXA] 20 mg PO DAILY cloNIDine HCL 0.1 mg PO DAILY lisinopriL [Zestril] 40 mg PO DAILY Omeprazole 20 mg PO DAILY Multivitamins, Thera [Multivitamin (formulary)] 1 tab PO DAILY Vitamin E (Unknown Dose) 1 tab PO DAILY Discharge Medication List Citalopram Hydrobromide [CeleXA] 20 mg PO DAILY 04/16/24 [History] Omeprazole 20 mg PO DAILY 04/16/24 [History] lisinopriL [Zestril] 40 mg PO DAILY 04/16/24 [History] cloNIDine HCL 0.1 mg PO DAILY 05/08/24 [History] Multivitamins, Thera [Multivitamin (formulary)] 1 tab PO DAILY 06/28/24 [History] Vitamin E (Unknown Dose) 1 tab PO DAILY 06/28/24 [History] Ciprofloxacin HCl [Cipro] 250 mg PO Q12HR #6 tablet 07/06/24 [Rx] HYDROcodone/APAP 5-325MG [[place] 5-325] 1 - 2 tab PO Q6HR PRN #6 tab 07/06/24 [Rx] Activity/Diet/Wound Care/Special Instructions: Discharge home with Moyer catheter. Instruct patient to use overnight drainage bag as well as urinary leg bag. Okay to shower. Diet as tolerated. No lifting, driving, or strenuous activity. Reassure patient that abdominal wall ecchymosis and penoscrotal swelling are normal. Instruct patient to begin taking antibiotics one day prior to Moyer catheter removal. Discharge Disposition: HOME SELF-CARE
== END 2024-07-06 13:38 | disposition home or self-care (01) ==
LOC: OR 10:07 → 4SSUR 16:48 → OR 07-06 13:38
PROVIDERS: ATTEND Urology
DX: C61 Malignant neoplasm of prostate (principal); E78.5 Hyperlipidemia, unspecified; G89.18 Other acute postprocedural pain; I10 Essential (primary) hypertension; K21.9 Gastro-esophageal reflux disease without esophagitis; Z79.899 Other long term (current) drug therapy
CPT/HCPCS: 55866; 38571; 64468; 88307; 88309; J2250; J0330; J0360; J1644 ×2; J1100; J2710; J0690; J2405; J2003; J3010; J1171 ×2; J2795; J1885 ×2; J2704; J2371; J0665; J1596